=== PATIENT | male | born 1955 | race Caucasian/White ===

== ENCOUNTER → 2018-11-04 | Outpatient (CLI) | payer OTHER ==
[~2018-11-04] MED LIST: CLON-303 *; CYC10 PO; DESV50TA9 PO; DUT0.5 PO; KET10 PO; LOR1 PO; METHY10 PO; PER PO; TRA50 PO; ZOLP-350 PO
--- NOTE | 2018-11-04 16:29 | RADIOLOGY IMAGING REPORT ---
FACILITY: [facility] - [place], [place] PATIENT NAME: Bogdan Puente : 1955 MR: [id number] V: [id number] EXAM DATE: ORDERING PHYSICIAN: MELIDA SYED TECHNOLOGIST: Location: [facility] - [place] Patient: Bogdan Puente : 1955 Visit/Account:[id number] Date of Sevice: 11/04/2018 THORACIC SPINE 2 VIEW HISTORY: Back pain COMPARISON: None FINDINGS: 3 views of the thoracic spine were obtained. AP lateral and swimmer's views of the thoracic spine demonstrates no evidence of compression fracture . There is no evidence of lytic or blastic bony lesions. The paraspinal soft tissues are unremarkab le in appearance. No significant degenerative changes. IMPRESSION: No acute fracture or spondylolisthesis. Report Dictated By: Davidson Palmer at 11/04/2018 4:25 PM Report E-Signed By: Davidson Palmer at 11/04/2018 4:26 PM WSN:[id number]
== END ==
LOC: RAD 15:35
PROVIDERS: ATTEND Chiropractor
DX: M54.6 Pain in thoracic spine (principal)
CPT/HCPCS: 72070

== ENCOUNTER → 2019-06-10 | Outpatient (CLI) | payer OTHER | LOC: US 00:50 | PROVIDERS: ATTEND Internal Medicine Cardiovascular Disease | DX: R07.89 Other chest pain (principal) | CPT/HCPCS: 93017; 93350 ==